=== PATIENT | male | born 1995 | race Hispanic/Latino ===

== ENCOUNTER 2019-09-13 08:33 | Emergency (ER) | payer BC ==
[2019-09-13] MEDS ORDERED: IBUPROFEN PO ONE (09:50)
[2019-09-13] MEDS ORDERED: NORCO 5/325 PO ONE (09:50)
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
--- NOTE | 2019-09-13 10:34 | XRay Report ---
LEFT ELBOW, 3 VIEWS INDICATION: left elbow injury with pain and swelling. COMPARISON: None. IMPRESSION: No acute osseous or soft tissue abnormality. No significant DJD. Signer Name: Ashkan Millan Jr, MD Signed: 09/13/2019 10:29 AM Workstation Name: [id number]
[2019-09-13 10:53] VITALS: BP 129/80
== END 2019-09-13 10:53 | disposition home or self-care (01) ==
LOC: ED 08:33
DX: S50.02XA Contusion of left elbow, initial encounter (principal); X58.XXXA Exposure to other specified factors, initial encounter; Y93.9 Activity, unspecified; Y92.89 Other specified places as the place of occurrence of the external cause; Y99.9 Unspecified external cause status